=== PATIENT | female | born 1965 | race Caucasian/White ===

== ENCOUNTER → 2016-08-10 | Outpatient (CLI) | payer BC ==
[~2016-08-10] MED LIST: ACET-2267 PO; APIX5TAB PO; CNC1KV INJ; ESTR2TAB PO; FLUT9.9S NS; LORA10TA76 PO; NF-SOLIF5T PO; ZOLP10TA5 PO
--- OUTSIDE RECORDS SUMMARY | 2016-08-10 11:10 | XMS REPORT | Continuity of Care Document ---
Author Author [facility] Organization [facility] Address Unknown Phone Unavailable Allergies Active Description Code Type Severity Reaction Onset Reported/Identified Relationship to Patient Clinical Status Yes No Known Drug Allergies [id number] Drug Allergy Unknown N/ A 04/02/2016 Medications Problems Date Dx Coded Attending Type Code Diagnosis Diagnosed By 04/24/2010 Ot 780.52 07/20/2014 Ot 780.60 02/08/2015 Ot 722.0 02/08/2015 Ot 959.19 02/08/2015 Ot E000.8 02/08/2015 Ot E819.9 02/08/2015 Ot 427.9 02/08/2015 Ot 785.1 02/08/2015 Ot 786.59 02/08/2015 Ot 396.3 02/08/2015 Ot 397.0 02/08/2015 Ot 785.0 02/08/2015 Ot V76.12 02/08/2015 Ot V76.12 02/08/2015 POPPY COLLINS, AZAM Fitch Ot 611.72 02/08/2015 Ot 780.60 02/14/2015 Ot 722.0 02/14/2015 Ot 959.19 02/14/2015 Ot E000.8 02/14/2015 Ot E819.9 02/14/2015 Ot 427.9 02/14/2015 Ot 785.1 02/14/2015 Ot 786.59 02/14/2015 Ot 396.3 02/14/2015 Ot 397.0 02/14/2015 Ot 785.0 02/14/2015 Ot V76.12 02/14/2015 Ot V76.12 02/14/2015 POPPY COLLINS, AZAM Fitch Ot 611.72 02/14/2015 Ot 780.60 02/14/2015 POPPY COLLINS, AZAM Fitch Ot V76.12 02/20/2015 POPPY COLLINS, AZAM Fitch Ot V76.12 04/02/2016 IDALMIS KNOWLES APRN Ot R20.0 ANESTHESIA OF SKIN 04/07/2016 IDALMIS KNOWLES APRN Ot R20.0 ANESTHESIA OF SKIN 04/20/2016 IDALMIS KNOWLES APRN Ot R20.0 ANESTHESIA OF SKIN 05/20/2016 Ot V76.12 OTH SCREEN MAMMO-MALIGN NEOPLASM OF MONSE 05/20/2016 AZAM MCWILLIAMS MD Ot 611.72 LUMP OR MASS IN BREAST 05/20/2016 Ot 780.60 FEVER, UNSPECIFIED 05/20/2016 AZAM MCWILLIAMS MD Ot V76.12 OTH SCREEN MAMMO-MALIGN NEOPLASM OF MONSE 05/20/2016 IDALMIS KNOWLES APRN Ot R20.0 ANESTHESIA OF SKIN 05/27/2016 Ot V76.12 OTH SCREEN MAMMO-MALIGN NEOPLASM OF MONSE 05/27/2016 AZAM MCWILLIAMS MD Ot 611.72 LUMP OR MASS IN BREAST 05/27/2016 Ot 780.60 FEVER, UNSPECIFIED 05/27/2016 AZAM MCWILLIAMS MD Ot V76.12 OTH SCREEN MAMMO-MALIGN NEOPLASM OF MONSE 05/27/2016 IDALMIS KNOWLES APRN Ot R20.0 ANESTHESIA OF SKIN Procedures Results Encounters ACCT No. Visit Date/Time Discharge Status Pt. Type Provider Facility Loc./Unit Complaint [id number] 02/08/2015 10:21:00 2014 23:59:59 CLS Outpatient AZAM MCWILLIAMS MD [facility] RAD SCREENING [id number] 01/30/2014 07:35:00 2013 23:59:59 CLS Outpatient AZAM MCWILLIAMS MD [facility] RAD BREAST MASS [id number] 04/02/2016 15:24:00 ACT Outpatient IDALMIS KNOWLES APRN [facility] RAD FACIAL NUMBNESS [id number] 07/18/2014 09:41:00 Document Registration [id number] 01/13/2012 13:00:00 Document Registration [id number] 05/07/2010 07:24:00 Document Registration [id number] 04/23/2010 19:47:00 Document Registration [id number] 04/16/2010 08:52:00 Document Registration [id number] 04/09/2010 07:31:00 Document Registration [id number] 03/20/2010 10:00:00 Document Registration [id number] 12/11/2009 07:30:00 Document Registration
--- NOTE | 2016-08-10 18:45 | Diagnostic Imaging Report ---
Bilateral screening mammogram. The current study was also evaluated with a Computer Aided Detection (CAD) system. INDICATION: Screening. No current complaints stated on the questionnaire. COMPARISON: 02/08/2015. FINDINGS: The breasts are composed of scattered fibroglandular densities. There are occasional benign-appearing calcifications. Allowing for technique and positional differences, no suspicious change is seen. IMPRESSION: No significant change. ACR BI-RADS Category 2: Benign findings. Result letter will be mailed to the patient. Note: At least 10% of breast cancer is not imaged by mammography. Dictated by: Dictated on workstation # [id number]
== END ==
LOC: RAD 11:07
PROVIDERS: ATTEND Obstetrics & Gynecology
DX: Z12.31 Encounter for screening mammogram for malignant neoplasm of breast (principal)
CPT/HCPCS: 77067

== ENCOUNTER → 2016-09-28 | Outpatient (CLI) | payer BC ==
--- NOTE | 2016-09-28 11:32 | Diagnostic Imaging Report ---
PROCEDURE: US right lower extremity venous. TECHNIQUE: Multiple real-time grayscale images were obtained over the right lower extremity in various projections. Additional duplex Doppler and color Doppler images were also obtained. INDICATION: Right calf pain. FINDINGS: There is patency with color flow and compressibility seen in the common femoral vein, profunda femoris, and femoral vein as well as the popliteal vein in the right lower extremity. There is, however, near occlusive thrombosis of the right peroneal paired veins. IMPRESSION: Nearly occlusive thrombosis of the right peroneal veins. The preliminary results were called to Dr. Kuhn at 11:23 AM by Ms. Bloom, the certified ophthalmic technologist performing the exam. Dictated by: Dictated on workstation # [id number]
== END ==
LOC: RAD 10:56
PROVIDERS: ATTEND Family Medicine
DX: M79.661 Pain in right lower leg (principal)

== ENCOUNTER 2016-09-30 08:45 | Observation (INO) | payer BC ==
[~2016-09-30] VITALS: Ht 157.5 cm; Wt 71.7 kg
[2016-09-30 08:59] VITALS: BP 126/68
[2016-09-30] MEDS ORDERED: ENOXAPARIN 80 MG/0.8 ML (LOVENOX) SYR SC SCH (09:30)
[2016-09-30 09:45] LABS: BASOPHILS % (AUTO) 0 % (0-10); EOSINOPHILS # (AUTO) 0.1 10^3/uL (0.0-0.3); EOSINOPHILS % (AUTO) 1 % (0-10); LYMPHOCYTES # (AUTO) 1.9 X 10^3 (1.0-4.0); LYMPHOCYTES % (AUTO) 24 % (12-44); MEAN CORPUSCULAR HEMOGLOBIN 30 PG (25-34); MEAN CORPUSCULAR HGB CONC 33 G/DL (32-36); MEAN CORPUSCULAR VOLUME 89 FL (80-99); MEAN PLATELET VOLUME 9.5 FL (7.4-10.4); MONOCYTES # (AUTO) 0.6 X 10^3 (0.0-1.0); MONOCYTES % (AUTO) 7 % (0-12); NEUTROPHILS # (AUTO) 5.3 X 10^3 (1.8-7.8); NEUTROPHILS % (AUTO) 68 % (42-75); PLATELET COUNT 272 10^3/uL (130-400); RED BLOOD COUNT 4.42 10^6/uL (4.35-5.85); RED CELL DISTRIBUTION WIDTH 13.1 % (10.0-14.5); WHITE BLOOD COUNT 7.9 10^3/uL (4.3-11.0)
--- NOTE | 2016-09-30 09:59 | History & Physical-Hospitalist ---
HPI History of Present Illness: HPI/Chief Complaint CC: Extensive of severe right lower leg DVT with fainting spell HPI: This is a 51-year-old white female new patient to Dr. Kuhn the presented to his office on Wednesday with a right lower leg pain that had started the previous . She reports that the charley horse that she had in her right leg worsened to the point that she was really unable to walk well went to Dr. Kuhn's convenient care on Wednesday after her nurse daughter encouraged her to do so and ultrasound revealed right lower extremity DVT with occlusion of the peroneal vein so she was placed on Eliquis and sent home but yesterday began having more pain and then charley horses in the left leg and became faint at one point in the day and could no longer walk today. She went to see Dr. Kuhn is instructed he found her to have worrisome signs of extension of the DVT so she was therefore admitted to the hospital placed on therapeutic dose of Lovenox and we will obtain a repeat ultrasound to evaluate if the DVT has extended into the iliofemoral moral region and if that is the case we will confer with cardiology regarding clot burden management. We are also obtaining CT angiogram of the chest to rule out possibly PE. 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) Smoking Status: Never a Smoker Surgeries HX Surgeries: Yes Surgeries: Abdominal, Section (x3), Eye Surgery (as a child), Hysterectomy Respiratory Hx Respiratory Disorders: No Cardiovascular Hx Cardiovascular Disorders: No Neurological Hx Neurological Disorders: No Reproductive System [employer] P[employer]CHER Hx: Hysterectomy Genitourinary Hx Genitourinary Disorders: No Gastrointestinal Hx Gastrointestinal Disorders: No Musculoskeletal Hx Musculoskeletal Disorders: No Endocrine Hx Endocrine Disorders: No HEENT HX ENT Disorders: No Cancer Hx Cancer: No Psychosocial Hx Psychiatric Problems: No Integumentary HX Skin/Integumentary Disorder: No Review of Systems Constitutional: malaise, weakness EENTM: no symptoms reported Respiratory: short of breath Cardiovascular: no symptoms reported Gastrointestinal: no symptoms reported Genitourinary: no symptoms reported Musculoskeletal: muscle cramps Skin: no symptoms reported Psychiatric/Neurological: No Symptoms Reported All Other Systems Reviewed Negative Unless Noted: Yes Physical Exam Physical Exam Vital Signs Vital Sign - Last 12Hours 09/30/16 08:59 Temp 97.9 Pulse 62 Resp 20 B/P (MAP) 126/68 Pulse Ox 97 O2 Delivery Room Air Capillary Refill : General Appearance: No Apparent Distress, WD/WN Eyes: Bilateral Eye Normal Inspection, Bilateral Eye PERRL HEENT: PERRL/EOMI, Normal ENT Inspection, Pharynx Normal Neck: Full Range of Motion, Normal Inspection, Non Tender, Supple, Carotid Bruit Respiratory: Chest Non Tender, Lungs Clear, Normal Breath Sounds, No Accessory Muscle Use, No Respiratory Distress Cardiovascular: Regular Rate, Rhythm, No Edema, No Gallop, No JVD, No Murmur, Normal Peripheral Pulses Gastrointestinal: Normal Bowel Sounds, No Organomegaly, No Pulsatile Mass, Non Tender, Soft Back: Normal Inspection, No CVA Tenderness, No Vertebral Tenderness Extremity: Normal Capillary Refill, Normal Inspection, Normal Range of Motion, No Calf Tenderness, No Pedal Edema, Swelling (subtle right calf), Other (+Marialuisa' s sign) Neurologic/Psychiatric: Alert, Oriented x3, No Motor/Sensory Deficits, Normal Mood/Affect Skin: Normal Color, Warm/Dry Lymphatic: No Adenopathy Results Results/Procedures Lab Laboratory Tests 09/30/16 09:32 Assessment/Plan Admission Diagnosis Assessment: Acute and rapidly extending RLE DVT in patient on estrogen for 2 years FH+ CVA's and thrombosis Dyspnea episode Assessment and Plan Plan: Lovenox 1mg/kg SQ Q12 hours CT angiogram Repeat USG of right leg and additional left leg since new symptoms in that leg now Hypercoagulable workup indicated due to extensive clot formation Clinical Quality Measures DVT/VTE Risk/Contraindication: Contraindications-Mechi: Other *list below* LIZBETH AOTES DO September 30, 2016 09:59
[2016-09-30] MEDS ORDERED: CNC1KV INJ (10:10)
[2016-09-30] MEDS ORDERED: APIX5TAB PO (10:10)
[2016-09-30] MEDS ORDERED: NF-SOLIF5T PO (10:13)
[2016-09-30] MEDS ORDERED: ESTR2TAB PO (10:13)
[2016-09-30] MEDS ORDERED: ZOLP10TA5 PO (10:13)
[2016-09-30] MEDS ORDERED: ACET-2267 PO (10:14)
[2016-09-30] MEDS ORDERED: LORA10TA76 PO (10:16)
[2016-09-30] MEDS ORDERED: FLUT9.9S NS (10:16)
[2016-09-30 10:42] LABS: ALANINE AMINOTRANSFERASE 11 U/L (0-55); ANION GAP 11 MMOL/L (5-14); ASPARTATE AMINO TRANSFERASE 12 U/L (5-34); BILIRUBIN,TOTAL 0.3 MG/DL (0.1-1.0); BLOOD UREA NITROGEN 9 MG/DL (7-18); BUN/CREATININE RATIO 13; CARBON DIOXIDE 21 MMOL/L (21-32); CHLORIDE 108 MMOL/L (98-107); CREATININE SERUM 0.71 MG/DL (0.60-1.30); GFR ESTIMATED > 60; GLUCOSE 89 MG/DL (70-105); POTASSIUM 3.9 MMOL/L (3.6-5.0); SODIUM 140 MMOL/L (135-145); TOTAL PROTEIN 7.2 G/DL (6.4-8.2)
[2016-09-30] MEDS ORDERED: LORATADINE (CLARITIN) 10 MG TAB PO PRN (11:45)
[2016-09-30] MEDS ORDERED: ACETAMINOPHEN 500 MG TAB (TYLENOL) PO PRN (11:45)
[2016-09-30] MEDS: ENOXAPARIN 80 MG/0.8 ML (LOVENOX) SYR SC SCH ×2 (12:50→23:55)
--- NOTE | 2016-09-30 12:53 | Diagnostic Imaging Report ---
EXAMINATION: Bilateral lower extremity duplex venous ultrasound. INDICATION: Worsening pain in the right leg. COMPARISON: Venous ultrasound of the right lower extremity from 09/28/2016. TECHNIQUE: The left lower extremity veins from the common femoral veins to below the knee veins were examined with normal color-flow, compressibility, and normal waveform demonstrated. FINDINGS: In the right lower extremity, the femoropopliteal segments are patent. Again seen, similar to 09/28/2016, is nearly occlusive thrombus of the right peroneal veins. The posterior tibial vein is patent. IMPRESSION: 1. Unchanged nearly occlusive thrombus within the right peroneal veins. 2. No evidence of DVT in the left lower extremity. Dictated by: Dictated on workstation # [id number]
[2016-09-30] MEDS ORDERED: NS 100 ML (IVPB) BAG IV ONE (14:30)
[2016-09-30] MEDS ORDERED: IOHEXOL 350 MG/ML 150 ML (OMNIPAQUE 350) VIAL IV ONE (14:30)
[2016-09-30] MEDS ORDERED: TROSPIUM 20 MG (SANCTURA) TAB PO SCH (16:00)
[2016-09-30 16:19] VITALS: BP 124/80
[2016-09-30] MEDS ORDERED: PATIENT MAY USE OWN MEDS, ALL MC SCH (16:45)
--- NOTE | 2016-09-30 16:57 | Diagnostic Imaging Report ---
PROCEDURE: CT angiography of the chest with contrast. TECHNIQUE: Multiple contiguous axial images were obtained through the chest after uneventful bolus administration of intravenous contrast. Reconstructed CTA MIP acquisitions were also performed. INDICATION: DVT. Evaluate for pulmonary embolism. FINDINGS: The pulmonary arteries are well-opacified. There is a tiny filling defect compatible with pulmonary embolism partially occlusive to branch point at the posterior segment of the right lower lobe, axial image 102 and the coronal image 76. No central pulmonary embolism. The thoracic aorta is normal in caliber. No dissection. No pericardial or pleural effusion. There is no mediastinal, hilar or axillary lymphadenopathy. The lungs demonstrate no significant consolidation, mass or suspicious nodule. The sections in the upper abdomen appear grossly unremarkable. Osseous structures appear grossly unremarkable. IMPRESSION: There is a small nonocclusive pulmonary embolism involving a branch point of the posterior segmental branch of the right lower lobe pulmonary artery. No PE otherwise in other segmental or more central pulmonary arteries seen. The findings were discussed with Dr. Oates at time of dictation by Dr. Oneil. Dictated by: Dictated on workstation # [id number]
[2016-09-30] MEDS: ZOLPIDEM 5 MG (AMBIEN) TAB PO SCH ×2 (18:12→18:13)
[2016-09-30 19:46] VITALS: BP 127/79
[2016-09-30] MEDS ORDERED: SOLIFENACIN 5 MG TAB (VESICARE) NON-FORMULARY PO SCH (21:00)
[2016-10-01 00:15] VITALS: BP 140/79
[2016-10-01 04:02] VITALS: BP 128/73
[2016-10-01 05:11] LABS: INR 1.1 (0.8-1.4); PROTHROMBIN TIME PATIENT 14.1 SEC (12.2-14.7)
[2016-10-01] MEDS ORDERED: PATIENT MAY USE OWN MED,SINGLE MED PO SCH (07:45)
[2016-10-01] MEDS ORDERED: ACETAMINOPHEN 500 MG TAB (TYLENOL) PO PRN (07:45)
[2016-10-01 08:00] VITALS: BP 124/81
[2016-10-01] MEDS ORDERED: FLUTICASONE NASAL SPRAY (FLONASE) 16 GM BTL NS PRN (09:00)
--- NOTE | 2016-10-01 11:09 | Discharge Summary-Hospitalist ---
Diagnosis/Chief Complaint Date of Admission September 30, 2016 at 08:49 Date of Discharge Discharge Date: October 01, 2016 Admission Diagnosis Assessment: Acute and rapidly extending RLE DVT in patient on estrogen for 2 years FH+ CVA's and thrombosis Dyspnea episode Discharge Diagnosis Assessment: Subacute RLE DVT with PE on CT angiogram in patient on estrogen for 2 years FH+ CVA's and thrombosis Dyspnea episode likely when PE occurred Reason Hospital Visit/Course CC: Extensive of severe right lower leg DVT with fainting spell HPI: This is a 51-year-old white female new patient to Dr. Kuhn the presented to his office on Wednesday with a right lower leg pain that had started the previous . She reports that the charley horse that she had in her right leg worsened to the point that she was really unable to walk well went to Dr. Kuhn's convenient care on Wednesday after her nurse daughter encouraged her to do so and ultrasound revealed right lower extremity DVT with occlusion of the peroneal vein so she was placed on Eliquis and sent home but yesterday began having more pain and then charley horses in the left leg and became faint at one point in the day and could no longer walk today. She went to see Dr. Kuhn is instructed he found her to have worrisome signs of extension of the DVT so she was therefore admitted to the hospital placed on therapeutic dose of Lovenox and we will obtain a repeat ultrasound to evaluate if the DVT has extended into the iliofemoral moral region and if that is the case we will confer with cardiology regarding clot burden management. We are also obtaining CT angiogram of the chest to rule out possibly PE. Notes from 10/01/16 labor mediator: Pt asked about a 5 hour car trip in the near future. Pt was informed that she is okay to travel because she is on blood thinner. Patient Interview: Pt was informed that she did indeed have a small PE. Pt was informed that she was to remain off the Estrogen for the time being and that Dr. Foster was updated on this information. Pt confirms taking Eliquis 10 mg BID and she will continue to take it as it is still an adequate treatment. Pt still has about seven days left of the current sample and will refill after that time. Pt has not had her Eliquis yet today Pt was informed that labs will be performed again to check for clotting disorder. Physical exam stable Pt is worried about ambulating and if it will cause the clot to move inappropriately Pt was concerned about returning to work. Pt will be okay to return to work on 10/05/16. No fever, vital signs stable, pleasant, improved Regular rate and rhythm, clear to auscultation bilaterally No edema Plan: Follow up with Dr. Kuhn to assess labs Continue Eliquis at home Ibuprofen at home Scribed by Muna Sampson under the direct supervision of Dr. Villaseñor. Hospital course: Patient a brief hospital course she was directly admitted due to concern of extending right lower extremity DVT. Bilateral venous Doppler ultrasounds showed no evidence of such and negative for left lower extremity DVT but CT scan confirmed small pulmonary embolism that was suspected after a slight fainting episode and shortness of breath episode will she was at home last week. Since she had only received 2 doses of Eliquis at home prior to direct admission and since the DVT was not extending it was in my medical opinion this was not a failure on the Eliquis anticoagulation so be appropriate therapy to go on 10 mg twice a day for 10 days and then titrate accordingly for acute DVT and PE. She was given Lovenox bridge therapeutic dose while she was hospitalized and Eliquis 10 mg dose was given prior to discharge. Hypercoagulable workup was pending at time of discharge Dr. Kuhn will manage that and I told her to see primary care provider on Wednesday. Discharge Summary Discharge Physical Examination Allergies: Coded Allergies: meperidine (Verified Allergy, Severe, 09/30/16) ROOM SPINNING AND NAUSEA atropine (Verified Allergy, Intermediate, HIVES, 09/30/16) diphenoxylate (Verified Allergy, Intermediate, HIVES, 09/30/16) Sulfa (Sulfonamide Antibiotics) (Verified Allergy, Unknown, 09/30/16) CHILDHOOD REACTION codeine (Verified Allergy, Unknown, 09/30/16) CHILDHOOD REACTION hydrocodone (Verified Adverse Reaction, Severe, NAUSEA, 09/30/16) HAD FLU LIKE SYMPTOMS INCLUDING NAUSEA VOMITTING latex (Verified Adverse Reaction, Intermediate, RASH, 09/30/16) RASH/ITCHING Vitals & I&Os Vital Signs Date Time Temp Pulse Resp B/P (MAP) Pulse Ox O2 Delivery O2 Flow Rate FiO2 10/01/16 08:00 98.2 61 16 124/81 96 Room Air Hospital Course Labs (last 24 hrs) Laboratory Tests 10/01/16 04:35: Prothrombin Time 14.1, INR Comment 1.1 Pending Labs Laboratory Tests 10/01/16 04:35: Prothrombin Time 14.1, INR Comment 1.1 Discharge Home Medications: Active Scripts Active Reported Flonase Allergy Relief (Fluticasone Propionate) 9.9 Ml Tumtum.susp 2 Sprays NS DAILY PRN Claritin (Loratadine) 10 Mg Tablet 5 Mg PO DAILY PRN TAKES 1/2 (10MG) TABLET Tylenol Extra Strength (Acetaminophen) 500 Mg Tablet 500 Mg PO Q4H PRN Vesicare (Solifenacin Succinate) 5 Mg Tablet 5 Mg PO HS Zolpidem Tartrate 10 Mg Tablet 7.5 Mg PO HS TAKES 3/4 (10MG) TABLET Eliquis (Apixaban) 5 Mg Tablet 10 Mg PO 0200,1400 TAKES 2 (5MG) TABLETS Cyanocobalamin Injection (Cyanocobalamin) 1,000 Mcg/Ml Inj 1,000 Mcg INJ MONTHLY Instructions to patient/family Please see electonic discharge instructions given to patient. Clinical Quality Measures DVT/VTE Risk/Contraindication: Risk Factor Score Per Nursin RFS Level Per Nursing on Admit: 4+=Very High Contraindications-Mechi: Other *list below* NADIA VILLASEÑOR DO October 01, 2016 11:09
[2016-10-01] MEDS ORDERED: APIXABAN 5 MG (ELIQUIS) TABLET PO NR (11:32)
[2016-10-02 11:26] LABS: FACTOR 5 (LEIDEN) MUTATION Heterozygous (Negative)
[2016-10-03 07:20] LABS: FACTOR 5 LEIDEN INTERP See Footnote; PROTEIN C ANTIGEN 128 % (63-153); PROTEIN S ANTIGEN 128 % (63-126)
== END 2016-10-01 10:30 | disposition home or self-care (01) ==
LOC: 4TH 08:49 → UNDOADMOB 08:49 → 4TH 09:30 → UNDODISOB 10-01 11:38
PROVIDERS: ADMIT Internal Medicine; ATTEND Internal Medicine
DX: I82.491 Acute embolism and thrombosis of other specified deep vein of right lower extremity (principal); I26.99 Other pulmonary embolism without acute cor pulmonale; R22.42 Localized swelling, mass and lump, left lower limb; Z79.01 Long term (current) use of anticoagulants; Z92.23 Personal history of estrogen therapy
CPT/HCPCS: 36415; 71275; 80053; 81241; 85025; 85302; 85305; 85610; 85730; 93970; 99211; G0378

== ENCOUNTER → 2016-11-18 | Outpatient (CLI) | payer BC | LOC: CARD 08:05 | PROVIDERS: ATTEND Family Medicine | DX: I82.401 Acute embolism and thrombosis of unspecified deep veins of right lower extremity (principal) | CPT/HCPCS: 93225; 93226 ==

== ENCOUNTER → 2016-12-15 | Outpatient (CLI) | payer BC ==
--- NOTE | 2016-12-15 14:51 | Diagnostic Imaging Report ---
EXAMINATION: Right lower extremity duplex venous ultrasound. TECHNIQUE: DVT protocol. Multiple sonographic images with color Doppler and waveform interrogation were performed of the right lower extremity veins with compression and augmentation maneuvers. INDICATION: Right leg DVT. Comparison 09/30/16. FINDINGS: The right lower extremity veins from the groin to below the knee veins were examined with normal color-flow, compressibility and normal waveform demonstrated. The great saphenous vein is patent. The previously seen peritoneal vein thrombosis is resolved. IMPRESSION: No evidence of DVT in the right lower extremity. Dictated by: Dictated on workstation # [id number]
--- NOTE | 2016-12-15 15:12 | Diagnostic Imaging Report ---
PROCEDURE: US Carotid Duplex Bilateral. TECHNIQUE: Multiple real-time grayscale images were obtained over the carotid arteries in various projections bilaterally. Additional duplex Doppler and color Doppler images were also obtained. INDICATION: Neck tightness and pulsatile tinnitus. FINDINGS: Normal arterial waveforms are seen in the carotid arteries bilaterally. Bifurcation regions are unremarkable. There is no evidence of significant atherosclerotic burden or stenosis. No occlusion is seen. There is antegrade flow within both vertebral arteries. IMPRESSION: Unremarkable carotid Doppler. Dictated by: Dictated on workstation # [id number]
== END ==
LOC: RAD 13:38
PROVIDERS: ATTEND Family Medicine
DX: I48.92 Unspecified atrial flutter (principal); H93.A9 Pulsatile tinnitus, unspecified ear; I82.402 Acute embolism and thrombosis of unspecified deep veins of left lower extremity; Z82.49 Family history of ischemic heart disease and other diseases of the circulatory system
CPT/HCPCS: 93880

== ENCOUNTER → 2017-04-23 | Outpatient (CLI) | payer BC ==
--- NOTE | 2017-04-23 17:15 | Diagnostic Imaging Report ---
PROCEDURE: CT chest without contrast. TECHNIQUE: Multiple contiguous axial images were obtained through the chest without the use of intravenous contrast. INDICATION: Chest pain. COMPARISON: Comparison made with prior examination from 09/30/2016. FINDINGS: There are no discrete pulmonary nodules, masses, or infiltrates. There is no pleural or pericardial fluid. There is no pneumothorax. Heart size is normal. There is no pathologically enlarged adenopathy in the chest. The osseous structures are unremarkable. The visualized intra-abdominal structures are unremarkable. IMPRESSION: Unremarkable noncontrast CT chest. Dictated by: Dictated on workstation # [id number]
--- NOTE | 2017-04-23 17:18 | Diagnostic Imaging Report ---
PROCEDURE: MRI lumbar spine. TECHNIQUE: Multiplanar, multisequence MRI of the lumbar spine was performed without contrast. INDICATION: Back pain. COMPARISON: None. FINDINGS: Alignment is normal. There is no subluxation or fracture. No osseous lesion is identified. The conus medullaris and nerve roots are grossly normal. There is no paraspinous mass. Minimal degenerative changes are seen throughout the disc spaces and facet joints. However, no broad-based disc bulge or herniation. There is no foraminal or central canal stenosis. Conus medullaris and nerve roots are normal. IMPRESSION: 1. Minimal diffuse degenerative disc disease and facet joint arthropathy. 2. No foraminal or central canal stenosis identified. Dictated by: Dictated on workstation # [id number]
== END ==
LOC: RAD 15:57
PROVIDERS: ATTEND Nurse Practitioner
DX: I82.409 Acute embolism and thrombosis of unspecified deep veins of unspecified lower extremity (principal); M46.96 Unspecified inflammatory spondylopathy, lumbar region; R07.9 Chest pain, unspecified; R20.2 Paresthesia of skin; M79.604 Pain in right leg; M79.605 Pain in left leg; M54.9 Dorsalgia, unspecified
CPT/HCPCS: 71250; 72148

== ENCOUNTER → 2017-04-28 | Outpatient (CLI) | payer BC ==
--- NOTE | 2017-04-28 08:52 | Diagnostic Imaging Report ---
EXAMINATION: Right lower extremity duplex venous ultrasound. TECHNIQUE: DVT protocol. Multiple sonographic images with color Doppler and waveform interrogation were performed of the right lower extremity veins with compression and augmentation maneuvers. INDICATION: Right leg pain. FINDINGS: The right lower extremity veins from the groin to below the knee veins were examined with normal color-flow, compressibility and normal waveform demonstrated. The great saphenous vein is patent. IMPRESSION: No evidence of DVT in the right lower extremity. Dictated by: Dictated on workstation # [id number]
== END ==
LOC: RAD 07:48
PROVIDERS: ATTEND Family Medicine
DX: M79.603 Pain in arm, unspecified (principal)

== ENCOUNTER → 2017-10-22 | Outpatient (CLI) | payer BC ==
--- NOTE | 2017-10-22 15:56 | Diagnostic Imaging Report ---
INDICATION: Routine screening. COMPARISON is made with prior study from 08/10/2016 and 02/08/2015. 2-D and 3-D bilateral screening mammography was performed with the Computer Aided Detection (CAD) system. FINDINGS: Scattered fibroglandular densities are identified bilaterally. The overall parenchymal pattern appears to be stable. Nodular densities in the right breast are stable consistent with benign etiologies. No new mass or malignant appearing microcalcifications are seen. The axillae are unremarkable. IMPRESSION: BI-RADS category 2 No mammographic features suspicious for malignancy are identified. ACR BI-RADS Category 2: Benign findings. Result letter will be mailed to the patient. Note: At least 10% of breast cancer is not imaged by mammography. Dictated by: Dictated on workstation # [id number]
== END ==
LOC: RAD 13:59
PROVIDERS: ATTEND Obstetrics & Gynecology
DX: Z12.31 Encounter for screening mammogram for malignant neoplasm of breast (principal)
CPT/HCPCS: 77067

== ENCOUNTER → 2018-03-25 | Outpatient (CLI) | payer BC | LOC: CARD 09:28 | PROVIDERS: ATTEND Nurse Practitioner Family | DX: I48.4 Atypical atrial flutter (principal); I10 Essential (primary) hypertension | CPT/HCPCS: 93005 ==

== ENCOUNTER → 2018-05-06 | Outpatient (CLI) | payer BC | LOC: CARD 10:25 | PROVIDERS: ATTEND Nurse Practitioner Family | DX: R42 Dizziness and giddiness (principal); R00.2 Palpitations | CPT/HCPCS: 93005 ==

== ENCOUNTER → 2018-05-12 | Outpatient (CLI) | payer BC ==
[2018-05-12 12:46] VITALS: BP 126/72
--- NOTE | 2018-05-12 12:46 | Cardiology Stress Test Report ---
Stress Test Report Date of Procedure/Referring: Date of Procedure: May 12, 2018 PCP Yuridia Munoz MD Admitting Physician David Kuhn MD Indications: Chest pain Baseline Heart Rate: 52 Baseline Blood Pressure: Blood Pressure Systolic: 126 Blood Pressure Diastolic: 72 Baseline EKG: Baseline EKG: sinus bradycardia Summary/Conclusion: Summary: In summary, the patient started exercising with a baseline heart rate, blood pressure and EKG mentioned above Patient was able to exercise for a total of 7.25 minutes on Farrukh protocol, METs 8.9 Maximum heart rate 165 bpm, 97 percent of maximum predicted heart rate response. Maximum blood pressure 205/69 mmHg. Stress E[address] no ST segment changes noted. Recovery EKG normal. Conclusion: 1. Normal exercise stress test. 2. Hypertensive response to exercise, I requested the patient to increase losartan to 100 mg a day. 3. Above average functional capacity. Yuridia MUNOZ MD May 12, 2018 12:46 pm
== END ==
LOC: CARD 11:26
PROVIDERS: ATTEND Internal Medicine Interventional Cardiology
DX: R07.89 Other chest pain (principal); I82.409 Acute embolism and thrombosis of unspecified deep veins of unspecified lower extremity; R00.2 Palpitations; R00.1 Bradycardia, unspecified
CPT/HCPCS: 93017; 93306

== ENCOUNTER 2018-06-13 10:50 | Outpatient (RCR) | payer BC | END 2018-08-10 | disposition home or self-care (01) | LOC: CARD 10:50 | PROVIDERS: ATTEND Internal Medicine Interventional Cardiology | DX: R00.1 Bradycardia, unspecified (principal); R00.2 Palpitations | CPT/HCPCS: 93270 ==

== ENCOUNTER → 2018-12-23 | Outpatient (CLI) | payer BC ==
--- NOTE | 2018-12-23 10:52 | Diagnostic Imaging Report ---
INDICATION: Routine screening. COMPARISON is made with prior mammogram from 10/22/2017 and 08/10/2016. 2-D and 3-D bilateral screening mammography was performed with CAD. Scattered fibroglandular densities are identified bilaterally. Overall breast parenchymal pattern is stable. Nodular density right breast is stable. There are benign calcifications present. No spiculated mass or malignant appearing microcalcifications are seen. Axillae are unremarkable. IMPRESSION: BI-RADS category 2 No mammographic features suspicious for malignancy are identified. ACR BI-RADS Category 2: Benign findings. Result letter will be mailed to the patient. Note: At least 10% of breast cancer is not imaged by mammography. Dictated by: Dictated on workstation # [id number]
== END ==
LOC: RAD 07:45
PROVIDERS: ATTEND Obstetrics & Gynecology
DX: Z12.31 Encounter for screening mammogram for malignant neoplasm of breast (principal)
CPT/HCPCS: 77067

== ENCOUNTER 2019-03-23 05:32 | Outpatient (CLI) | payer BC ==
[~2019-03-23] VITALS: Ht 154.9 cm; Wt 67.7 kg
== END 2019-03-23 16:22 | disposition home or self-care (01) ==
LOC: PREOP 05:32
PROVIDERS: ATTEND Surgery
DX: Z01.818 Encounter for other preprocedural examination (principal)

== ENCOUNTER → 2020-02-06 | Outpatient (CLI) | payer BC ==
--- NOTE | 2020-02-07 12:39 | Diagnostic Imaging Report ---
INDICATION: Routine screening. Comparison is made with prior mammogram 12/23/2018 and 10/22/2017. 2-D and 3-D bilateral screening mammography was performed with CAD. Scattered fibroglandular densities are identified bilaterally. Previously noted benign-appearing nodular density in the outer mid right breast appears stable. No new mass or malignant appearing microcalcifications are seen. Axillae are unremarkable. IMPRESSION: BI-RADS Category 2 No mammographic features suspicious for malignancy are identified. ACR BI-RADS Category 2: Benign findings. Result letter will be mailed to the patient. Note: At least 10% of breast cancer is not imaged by mammography. Dictated by: Dictated on workstation # [id number]
== END ==
LOC: RAD 15:45
PROVIDERS: ATTEND Obstetrics & Gynecology
DX: Z12.31 Encounter for screening mammogram for malignant neoplasm of breast (principal)
CPT/HCPCS: 77063; 77067

== ENCOUNTER → 2021-02-10 | Outpatient (CLI) | payer BC ==
--- NOTE | 2021-02-11 10:08 | Diagnostic Imaging Report ---
INDICATION: Screening. TECHNIQUE: The current study was also evaluated with a Computer Aided Detection (CAD) system. 3D Tomographic imaging was also performed. COMPARISON: 02/06/2020, 12/23/2018, and 10/22/2017. FINDINGS: There are scattered fibroglandular densities. There are a few benign type calcifications. There is an unchanged nodular density in the inferior right breast. There is no new dominant mass, spiculated lesion, or suspicious calcification identified. The skin, nipples, and axillae are unremarkable. IMPRESSION: Benign findings. ACR BI-RADS Category 2: Benign findings. Result letter will be mailed to the patient. Note: At least 10% of breast cancer is not imaged by mammography. Dictated by: Dictated on workstation # [id number]
== END ==
LOC: RAD 15:45
PROVIDERS: ATTEND Obstetrics & Gynecology
DX: Z12.31 Encounter for screening mammogram for malignant neoplasm of breast (principal)
CPT/HCPCS: 77063; 77067

== ENCOUNTER → 2021-09-02 | Outpatient (CLI) | payer BC ==
[~2021-09-02] MED LIST changes: -ESTR2TAB PO; +ESTR2TAB3 PO
--- NOTE | 2021-09-02 13:09 | Diagnostic Imaging Report ---
INDICATION: Bilateral hip pain. TIME OF EXAM: 12:46 PM. TECHNIQUE: An AP view of the pelvis and two views of each hip were obtained. FINDINGS: The femoroacetabular alignment is normal bilaterally. The hip joint spaces are fairly well maintained. Both femoral heads and necks are intact. No fractures are seen. The rami are intact. The SI joints and symphysis are non-widened. IMPRESSION: No acute bony abnormality is detected. Dictated by: Dictated on workstation # [id number]
== END ==
LOC: RAD 12:27
PROVIDERS: ATTEND Family Medicine
DX: M16.0 Bilateral primary osteoarthritis of hip (principal)
CPT/HCPCS: 73523

== ENCOUNTER → 2022-02-13 | Outpatient (CLI) | payer BC ==
--- NOTE | 2022-02-13 15:07 | Diagnostic Imaging Report ---
Indication: Routine screening. Comparison is made with prior mammograms from 02/10/2021 and 02/06/2020. 2-D and 3-D bilateral screening mammography was performed with CAD. Scattered fibroglandular densities are identified bilaterally. A nodular density in the right breast appears stable. No new mass or malignant appearing microcalcifications are seen. Axillae are unremarkable. IMPRESSION: BI-RADS Category 2 No mammographic features suspicious for malignancy are identified. ACR BI-RADS Category 2: Benign findings. Result letter will be mailed to the patient. Note: At least 10% of breast cancer is not imaged by mammography. Dictated by: Dictated on workstation # [id number]
== END ==
LOC: RAD 08:36
PROVIDERS: ATTEND Obstetrics & Gynecology
DX: Z12.31 Encounter for screening mammogram for malignant neoplasm of breast (principal)
CPT/HCPCS: 77063; 77067

== ENCOUNTER → 2022-07-24 | Outpatient (CLI) | payer BC | LOC: CARD 14:40 | PROVIDERS: ATTEND Internal Medicine Cardiovascular Disease | DX: I11.9 Hypertensive heart disease without heart failure (principal); I25.10 Atherosclerotic heart disease of native coronary artery without angina pectoris | CPT/HCPCS: 93306 ==

== ENCOUNTER → 2022-08-19 | Outpatient (CLI) | payer BC ==
[~2022-08-19] MED LIST changes: +CATHETER FLUSH 10 ML SYR IVP PRN
[2022-08-19 08:44] VITALS: BP 118/63
--- NOTE | 2022-08-19 11:32 | Cardiology Stress Test Report ---
Stress Test Report Date of Procedure/Referring: Date of Procedure: Aug 19, 2022 PCP Augustin Foster MD Admitting Physician Admitting Physician: Attending Physician: Niranjan Dorado MD Indications: CP Baseline Heart Rate: 53 Baseline Blood Pressure: Blood Pressure Systolic: 118 Blood Pressure Diastolic: 63 Vital Signs Date Time Temp Pulse Resp B/P (MAP) Pulse Ox O2 Delivery O2 Flow Rate FiO2 08/19/22 08:44 55 118/63 (81) Baseline Vital Signs Vital Signs Date Time Temp Pulse Resp B/P (MAP) Pulse Ox O2 Delivery O2 Flow Rate FiO2 08/19/22 08:44 55 118/63 (81) Baseline EKG: Baseline EKG: NSR Summary: After explaining the procedure and details to the patient, she signed the consent and was brought to the stress nuclear laboratory. Patient exercised on standard Farrukh protocol, EKG, heart rate and blood pressure were monitored continuously, resting and stress doses of radio tracer were injected, imaging was acquired and reviewed in the short axis, horizontal long axis and vertical long axis views Patient was able to exercise for a total of 7 minutes on Farrukh protocol, METs 8.5 Maximum heart rate 154 Maximum blood pressure 192/72 Stress EKG, Minimal nondiagnostic changes Recovery EKG, Return to baseline TID: 1.04 SSS: 2 SDS: 2 EF: 80 Conclusion: Good exercise tolerance for a total of 7 minutes on standard Farrukh protocol, 8.5 METS achieving 93% of maximum expected heart rate Appropriate heart rate response to exercise with hypertensive response to exercise with peak blood pressure 192/72 return to baseline during recovery Nondiagnostic EKG changes with exercise return to baseline during recovery No ischemia or infarction noted on SPECT images Normal left ventricular size, ejection fraction 80% Copy Copies To 1: MELBA MACKENZIE MD, BASHAR J MD Aug 19, 2022 11:32
== END ==
LOC: CARD 07:13
PROVIDERS: ATTEND Internal Medicine Cardiovascular Disease
DX: I10 Essential (primary) hypertension (principal); I25.10 Atherosclerotic heart disease of native coronary artery without angina pectoris
CPT/HCPCS: 78452; 93017; A9502

== ENCOUNTER 2023-03-17 05:44 | Outpatient (CLI) | payer BC ==
[~2023-03-17] VITALS: Ht 154.9 cm; Wt 70.3 kg
[~2023-03-17 05:44] MED LIST changes: -CATHETER FLUSH 10 ML SYR IVP PRN
[2023-03-17] MEDS ORDERED: GUAI100L13 PO (10:23)
[2023-03-17] MEDS ORDERED: LOSA50TA63 PO (10:23)
[2023-03-17] MEDS ORDERED: ZOLP10TA PO (10:23)
[2023-03-17] MEDS ORDERED: LORA10CA PO (10:23)
[2023-03-17] MEDS ORDERED: ASPI-1238 PO (10:23)
== END 2023-03-17 10:34 | disposition home or self-care (01) ==
LOC: PREOP 05:44
PROVIDERS: ATTEND Surgery
DX: Z01.818 Encounter for other preprocedural examination (principal)

== ENCOUNTER → 2023-03-18 | Outpatient (CLI) | payer BC ==
[~2023-03-18] MED LIST changes: +ASPI-1238 PO; +GUAI100L13 PO; +LORA10CA PO; +LOSA50TA63 PO; +ZOLP10TA PO
--- NOTE | 2023-03-19 08:58 | Diagnostic Imaging Report ---
Indication: Routine screening. Comparison is made with prior mammograms 02/13/2022 and 02/10/2021. 2-D and 3-D bilateral screening mammography was performed with CAD. Both breasts are heterogeneously dense, limiting the sensitivity of mammography. A benign-appearing nodule in the right breast appears stable. There are benign calcifications bilaterally. No spiculated mass or malignant-appearing microcalcifications are identified. Axillae are unremarkable. IMPRESSION: BI-RADS Category 2 No mammographic features suspicious for malignancy are identified. ACR BI-RADS Category 2: Benign findings. Result letter will be mailed to the patient. Note: At least 10% of breast cancer is not imaged by mammography. Dictated by: Dictated on workstation # [id number]
== END ==
LOC: RAD 15:45
PROVIDERS: ATTEND Obstetrics & Gynecology
DX: Z12.31 Encounter for screening mammogram for malignant neoplasm of breast (principal); Z13.820 Encounter for screening for osteoporosis
CPT/HCPCS: 77063; 77067

== ENCOUNTER 2023-03-24 11:47 | Day surgery (SDC) | payer BC ==
--- NOTE | 2023-03-19 10:47 | HISTORY AND PHYSICAL ---
DATE OF SERVICE: 03/24/2023. HISTORY OF PRESENT ILLNESS: The patient daughter is a 57-year-old female who is known to us. She had a colonoscopy by us in 02/2019 where she was found to have colitis of the ascending as well as descending colon. At that time, she was experiencing lower quadrant abdominal pain, diarrhea as well as blood per rectum. The biopsies did not show anything significant at that time. Upon further questioning, she had reported recurrent episodes of crampy abdominal pain for the past 10 years; however, not severe in any way. Since her colonoscopy in 2018, it appears that she has been started on mesalamine for her symptoms and they have resolved and she has not followed up since that time. She now reports some crampy abdominal pain approximately twice a month and this is usually associated with loose stools and no red blood that she could see. Again, based on her history as well as previous colonoscopy, she does have some level of inflammatory bowel disease. PAST MEDICAL HISTORY: DVT in the right lower leg in 2016, inflammatory bowel disease, hyperlipidemia, hypertension. PAST SURGICAL HISTORY: Partial hysterectomy in 1997, section x3 in 1993, 1994, and 1997. ALLERGIES: LATEX, SULFA, IODINE, DEMEROL, LOMOTIL, CODEINE. MEDICATIONS: Guaifenesin, Claritin, aspirin 81 mg, Eliquis, estrogens conjugated, losartan potassium 100 mg, Zolpidem 10 mg. SOCIAL HISTORY: Negative for tobacco smoke, social for alcohol. FAMILY HISTORY: Mother: Diabetes, hypertension, stroke. Maternal grandfather: Stroke. Vital signs: Blood pressure is 105/79. Current weight is 155.1 at 5 feet 2 inches with a body mass index of 28.4. REVIEW OF SYSTEMS: This is a well-nourished female, in no acute distress. She is not experiencing any shortness of breath or difficulty breathing. No chest pain, palpitations, or diaphoresis. No nausea or vomiting. She does report intermittent episodes of crampy lower abdominal pain with loose brown stools approximately twice a month that would last 2-3 days and then resolve on their own. No red blood per rectum. No dark tarry stools. No fever or chills. No recent inadvertent weight loss. All other review of systems negative. PHYSICAL EXAMINATION: CHEST: Clear. Good breath sounds bilaterally. HEART: Regular. No murmurs. EXTREMITIES: No lower extremity edema. Negative Homans sign. HEENT, NECK: No scleral icterus. No cervical lymphadenopathy. ABDOMEN: Soft, nondistended. There is some mild discomfort in the lower abdominal quadrant upon deep palpation with no peritoneal signs. SKIN: Warm, dry, and pink. NEUROLOGIC: Awake, alert, and oriented x3. ASSESSMENT AND PLAN: A 57-year-old female with some form of colitis and inflammatory bowel disease. She continues to have symptoms and we will recommend a followup colonoscopy as well as biopsies as appropriate, and again, she will be started on first line therapy for chronic active inflammatory bowel disease, which would encompass of 5 aminosalicylic acid 3 times a day for 6 weeks. We will also refer her to Gastroenterology for further medical management in hopes of keeping her symptoms nonexistent versus tolerable. We will proceed with scheduling her for a colonoscopy as well as biopsies as appropriate. Job ID: [id number] DocumentID: [id number] Dictated Date: 03/19/2023 09:30:06 Outsole Paraffiner Date: 03/19/2023 10:45:00 Dictated By: SARIAH TAPIA APRN
[~2023-03-24] VITALS: Ht 154.9 cm; Wt 70.3 kg
[2023-03-24] MEDS ORDERED: LACTATED RINGERS 1,000 ML 1,000 ML IV STA (11:50)
[2023-03-24] MEDS ORDERED: LIDOCAINE JELLY 2% 6 ML SYRINGE MM PRN (12:00)
[2023-03-24 12:02] VITALS: BP 113/72
--- NOTE | 2023-03-24 12:53 | Progress Note-Pre Operative ---
Pre-Operative Progress Note Date of Available H&P: Mar 24, 2023 Date H&P Reviewed: Mar 24, 2023 Time H&P Reviewed: 12:00 History & Physical: No changes noted Pre-Operative Diagnosis: hx ulcerative colitis, screening MORENA MAIN MD Mar 24, 2023 12:53
--- NOTE | 2023-03-24 12:55 | Discharge Inst-Surgical ---
D/C Lap Instructions-ETELVINA Follow Up 1 week Activity as tolerated High Fiber Diet 25g or more per day Avoid Alcohol, Caffeine, Spicy Joanna and Acid foods. Drink 64 fluid oz or more of fluids per day. Symptoms to Report: Fever over 101 degree F, Nausea/Vomiting If any problems/questions: Contact your physician or go to Emergency Room MORENA MAIN MD Mar 24, 2023 12:55
[2023-03-24] MEDS ORDERED: ONDANSETRON 4 MG ORAL DISSOLVE TABLET PO PRN (13:00)
[2023-03-24] MEDS ORDERED: ONDANSETRON INJECTION 4 MG/2 ML (SDV) IVP PRN (13:00)
[2023-03-24] MEDS ORDERED: LIDOCAINE JELLY 2% 6 ML SYRINGE ONE (13:48)
[2023-03-24 14:30] VITALS: BP 150/83
[2023-03-24 14:35] VITALS: BP 150/83
--- NOTE | 2023-03-24 14:39 | Progress Note-Post Operative ---
Post-Operative Progess Note Surgeon (s)/Director Post (s) Surgeon MORENA MAIN MD Director Post: none Pre-Operative Diagnosis hx ulcerative colitis, screening Post-Operative Diagnosis mild chronic stage 2 ext and int hemorrhoids, mild colitis sigmoid to transverse colon. Procedure & Operative Findings Date of Procedure 03/24/23 Procedure Performed/Findings colonoscopy with bx Anesthesia Type mac Estimated Blood Loss Estimated blood loss (mL): minimal Specimens/Packing Specimens Removed transverse and descending colon. MORENA MAIN MD Mar 24, 2023 14:39
[2023-03-24 15:47] VITALS: BP 150/83
--- NOTE | 2023-03-25 00:20 | OPERATIVE REPORT ---
DATE OF SERVICE: 03/24/2023 ATTENDING PRIMARY CARE PHYSICIAN: Dr. Rashid Mckeon. PREOPERATIVE DIAGNOSES: History of ulcerative colitis, rectal bleed. POSTOPERATIVE DIAGNOSES: Mild chronic stage II external and internal hemorrhoids, no fistulas or inflammation, mild colitis encompassing the transverse colon, descending colon to the sigmoid colon. PROCEDURE: Colonoscopy with biopsy. SURGEON: Morena Main MD. ANESTHESIA: Monitored anesthesia care. ESTIMATED BLOOD LOSS: Minimal. FINDINGS: Mild chronic stage II external and internal hemorrhoids, no fistulas or inflammation, mild colitis encompassing the transverse colon, descending colon to the sigmoid colon. DISPOSITION: The patient tolerated the procedure well. INDICATIONS: The patient is a 57-year-old female, known to us. We had done a colonoscopy on her in 02/2019 and was found to have colitis of the ascending and descending colon. At that time, she was having crampy abdominal pain, diarrhea as well as red blood per rectum. She had reported that she had had recurrent episodes of this for the past 10 years; however, not severe. We did start her on mesalamine after the colonoscopy and she states that she does have some symptoms on an intermittent basis; however, not severe. She is here for followup colonoscopy. However, again she does have episodes of crampy lower abdominal pain, diarrhea and blood per rectum. DESCRIPTION OF PROCEDURE: The patient was brought to the endoscopy suite and laid in the left lateral decubitus position. After adequate IV pain and sedative medications and monitored anesthesia care, a digital rectal examination was performed. Mild chronic stage II external and internal hemorrhoids were identified, not actively edematous nor inflamed and no bleeding. There were no fistulous tracts, fissures or any chronic or acute inflammatory changes. Normal sphincter tone was felt and there were no palpable masses. The endoscope was then intubated into the anus, rectum gently insufflated. The endoscope was then advanced through the valves of Hillman of the rectum with no polyps or any neoplasms identified. Starting from the sigmoid colon extending through the transverse colon, very small mild ulcerations again likely consistent with a mild ulcerative colitis. Biopsies were taken of the descending colon as well as the transverse colon and sent to pathology with visualization of good hemostasis. The endoscope was then advanced to the ascending colon to the cecum, which appeared normal. The endoscope was slowly withdrawn while taking a second look and suctioning of residual air with no additional findings. The patient tolerated the procedure well. We will recommend continued medical management with continuation of foods that avoid episodes of inflammation and the associated crampy abdominal pain, diarrhea as well as rectal bleeding. At this time, we feel that her symptoms are under control. However, if she does have recurrent or worsening episodes, we will refer her to gastroenterology. With the history of ulcerative colitis, She does have increased risk for development of colon cancer and we will recommend followup colonoscopy in approximately 3 years. Job ID: [id number] DocumentID: [id number] Dictated Date: 03/24/2023 14:29:41 Hematology Specialist Date: 03/25/2023 00:18:00 Dictated By: MORENA MAIN MD MTDD
== END 2023-03-24 15:40 | disposition home or self-care (01) ==
LOC: ENDO 11:47
PROVIDERS: ATTEND Surgery
DX: K63.89 Other specified diseases of intestine (principal); K62.5 Hemorrhage of anus and rectum; K64.1 Second degree hemorrhoids; K64.4 Residual hemorrhoidal skin tags

== ENCOUNTER → 2023-04-14 | Outpatient (CLI) | payer BC ==
--- NOTE | 2023-04-14 10:41 | Diagnostic Imaging Report ---
PROCEDURE: US Gallbladder. TECHNIQUE: Multiple real-time grayscale images were obtained over the right upper quadrant in various projections. INDICATION: Right upper quadrant pain. Liver is upper limits normal in size at 18 cm. Portal vein is patent and shows normal direction of flow. Gallbladder is without stones or sludge. There is no wall thickening or biliary duct dilatation. The visualized pancreas unremarkable. Aorta is nonaneurysmal. IVC is patent. Right kidney is without calculi or hydronephrosis. There is no ascites. IMPRESSION: Unremarkable gallbladder ultrasound. Dictated by: Dictated on workstation # [id number]
== END ==
LOC: RAD 08:55
PROVIDERS: ATTEND Surgery
DX: R10.11 Right upper quadrant pain (principal)
CPT/HCPCS: 76705

== ENCOUNTER → 2023-04-20 | Outpatient (CLI) | payer BC ==
--- NOTE | 2023-04-20 08:59 | Diagnostic Imaging Report ---
INDICATION: Postmenopausal screening COMPARISON: None FINDINGS: AP Spine L1-L4: [BMD (g/cm2): 1.071] [T-Score: -1.1] [Z-Score: -0.3] [BMD Previous: na] [BMD % Change: na] LT Hip Neck: [BMD (g/cm2): 0.752] [T-Score: -2.1] [Z-Score: -1.1] LT Hip Total: [BMD (g/cm2):0.905] [T-Score:-0.8] [Z-Score: -0.2] [BMD Previous: na] [BMD % Change: na] RT Hip Neck: [BMD (g/cm2):0.827] [T-Score:-1.5] [Z-Score:-0.5] RT Hip Total: [BMD (g/cm2):0.977] [T-score:-0.2] [Z-Score:0.4] [BMD Previous:na] [BMD % Change:na] *Indicates significant change from prior examination based on 95% confidence level. World Health Organization criteria for BMD interpretation classify patients as Normal (T-score at or above -1.0), Osteopenic (T-score between -1.0 and -2.5) or Osteoporotic (T-score at or below -2.5). LIMITATIONS AND MODIFICATION: None. FRACTURE RISK (FRAX SCORE): The ten year probability of (%): Major Osteoporotic Fracture: [13.6] Hip Fracture: [2.0] IMPRESSION: 1. Osteopenia 2. See below National Osteoporosis Foundation guidelines on when to potentially initiate pharmacologic therapy. Based on the National Osteoporosis Foundation Guidelines, pharmacologic treatment should be initiated in any of the following, unless clinical conditions suggest otherwise: * Any patient with prior fragility fracture of the hip or vertebrae. A spine fracture indicates 5X risk for subsequent spine fracture and 2X risk for subsequent hip fracture. * Osteoporosis (T-score <-2.5). * Postmenopausal women and men age 50 and older with low bone mass/osteopenia (T-score between -1.0 and -2.5) by DXA and 10-year major osteoporotic fracture greater than 20% or a 10-year probability of hip fracture greater than 3%. These fracture risks are supplied above in the FRAX score, if applicable. * Clinician judgement and/or patient preferences may indicate treatment for people with 10-year fracture probabilities above or below these levels. Dictated by: Dictated on workstation # [id number]
== END ==
LOC: RAD 08:20
PROVIDERS: ATTEND Obstetrics & Gynecology
DX: Z13.820 Encounter for screening for osteoporosis (principal); M85.80 Other specified disorders of bone density and structure, unspecified site; Z78.0 Asymptomatic menopausal state
CPT/HCPCS: 77080

== ENCOUNTER → 2023-04-30 | Outpatient (CLI) | payer BC ==
[~2023-04-30] MED LIST changes: +CATHETER FLUSH 10 ML SYR IVP PRN
--- NOTE | 2023-04-30 12:35 | Diagnostic Imaging Report ---
RADIOPHARMACEUTICAL: 5.46 mCi Tc-99m Choletec IV COMPARISON: Ultrasound dated 04/14/2023. INDICATION: Right upper quadrant pain. TECHNIQUE: Anterior dynamic imaging for 1 hour. Additional 60 minutes of imaging was performed after patient ingested an 8 ounce can of Ensure. FINDINGS: There is homogenous uptake throughout the liver. The gallbladder is visualized at 45 minutes and small bowel at 15 minutes. After CCK analog administration, there is abnormal contraction of the gallbladder with abnormally low calculated GBEF at 13%. IMPRESSION: 1. No evidence of acute cholecystitis or common duct obstruction. 2. Abnormally low GBEF of 13%. This can be seen with biliary dyskinesia or chronic acalculous cholecystitis. Dictated by: Dictated on workstation # [id number]
== END ==
LOC: RAD 08:18
PROVIDERS: ATTEND Surgery
DX: R10.11 Right upper quadrant pain (principal)
CPT/HCPCS: 78227; A9537